=== PATIENT | male | born 1960 | race Caucasian/White ===

== ENCOUNTER 2017-12-04 22:01 | Emergency (ER) | payer BC ==
[~2017-12-04] VITALS: Ht 172.7 cm; Wt 92.5 kg
[2017-12-05 00:09] LABS: HEMATOCRIT 40.7 % (38.0-50.0); HEMOGLOBIN 14.3 G/DL (12.5-16.6); MCH 30.8 PG (29.0-34.0); MCHC 35.1 G/DL (30.0-36.0); MCV 87.7 FL (86-99); PLATELET COUNT 183 K/uL (156-360); RBC DIS.WIDTH-CV 12.6 % (11.8-14.6); RBC DIS.WIDTH-SD 40.3 % (39-53); RED BLOOD COUNT 4.64 M/uL (4.00-5.50); WHITE BLOOD COUNT 10.2 K/uL (4.1-10.2)
[2017-12-05 00:35] LABS: ALBUMIN 4.1 g/dL (3.2-4.8)
[2017-12-05 00:36] LABS: CHLORIDE 102 mEq/L (99-109); POTASSIUM 3.4 mEq/L (3.7-5.4); SODIUM 140 mEq/L (136-147)
[2017-12-05 00:38] LABS: GLUCOSE 108 mg/dL (70-99); TOTAL PROTEIN 6.9 g/dL (6.4-8.3)
[2017-12-05 00:40] LABS: TOTAL BILIRUBIN 0.4 mg/dL (0.0-1.0)
[2017-12-05 00:41] LABS: ALKALINE PHOSPHATASE 59 IU/L (3-129)
[2017-12-05 00:42] LABS: CREATININE 1.2 mg/dL (0.6-1.3); GFR ESTIMATE (CALCULATED) > 59 mL/min/ (58.99-99999)
[2017-12-05 00:43] LABS: AST (GOT) 14 IU/L (2-34); UREA NITROGEN (BUN) 13 mg/dL (9-23)
[2017-12-05 00:45] LABS: ALT (GPT) 14 IU/L (3-49)
[2017-12-05] MEDS ORDERED: PERCOCET 5/31 TABLET PO (01:23)
[2017-12-05] MEDS ORDERED: MOTRIN600 MG PO (01:31)
[2017-12-05 02:40] VITALS: BP 142/78
[2017-12-06] MEDS ORDERED: ZETIA10 MG PO (18:18)
[2017-12-06] MEDS ORDERED: ALLOPURINOL300 MG PO (18:18)
[2017-12-06] MEDS ORDERED: HYDROCHLOROTHIA25 MG PO (18:19)
[2017-12-06] MEDS ORDERED: BACTRIM,SEPT1 TABLET PO (18:20)
[2017-12-06] MEDS ORDERED: VALSARTAN160 MG PO (18:20)
[2017-12-06] MEDS ORDERED: ASPIRIN81 M2 PO (18:21)
== END 2017-12-05 02:40 | disposition home or self-care (01) ==
LOC: EME 22:01
PROVIDERS: Physician Assistant
PROC: 0H9CXZZ Drainage of Left Upper Arm Skin, External Approach (ICD-10-PCS; principal; 2017-12-04)
DX: L02.414 Cutaneous abscess of left upper limb (principal); L03.114 Cellulitis of left upper limb
CPT/HCPCS: 73030; 80053; 83605; 85027; 87040; 87070; 87075; 87205; 99281; 99285; J0696; J1885; J7030